=== PATIENT | male | born 1970 | race Caucasian/White ===

== ENCOUNTER → 2016-07-02 | Outpatient (REF) | payer OTHER ==
[~2016-07-02] MED LIST: ALIVTAB PO; BUPR300T34 PO; CARV6.25 PO; CHLO125TA PO; IBUP200C PO; LISI-538 PO
[2016-07-02 14:04] LABS: ALBUMIN 3.7 GM/DL (3.2-5.2); ALBUMIN/GLOBULIN RATIO 1.09 (1.00-1.93); ALKALINE PHOSPHATASE 74 U/L (45-117); ALT/SGPT 103 U/L (12-78); ANION GAP 10 MEQ/L (8-16); AST/SGOT 92 U/L (15-37); BILIRUBIN,TOTAL 0.8 MG/DL (0.2-1.0); BLOOD UREA NITROGEN 21 MG/DL (7-18); CALCIUM LEVEL 8.9 MG/DL (8.5-10.1); CARBON DIOXIDE LEVEL 28 MEQ/L (21-32); CHLORIDE LEVEL 101 MEQ/L (98-107); CHOLESTEROL LEVEL 198 MG/DL (<200); GLOMERULAR FILTRATION RATE 57.8 (>60); GLUCOSE, FASTING 111 MG/DL (70-105); POTASSIUM SERUM 3.9 MEQ/L (3.5-5.1); SODIUM LEVEL 139 MEQ/L (136-145); TOTAL PROTEIN 7.1 GM/DL (6.4-8.2); TRIGLYCERIDES LEVEL 846 MG/DL (<150)
[2016-07-02 14:19] LABS: BASO % 0.7 % (0.0-1.0); EOS # 0.1 K/mm3 (0.0-0.50); EOS % 2.2 % (0.0-3.0); LARGE UNSTAINED CELL # 0.1 K/mm3 (0.0-0.4); LARGE UNSTAINED CELL % 2.1 % (0.0-4.0); LYMPH # 1.3 K/mm3 (1.5-4.5); LYMPH % 26.8 % (24.0-44.0); MEAN CORPUSCULAR HEMOGLOBIN 33.4 pg (27.0-33.0); MEAN CORPUSCULAR HGB CONC 34.9 g/dl (32.0-36.5); MEAN CORPUSCULAR VOLUME 95.8 fl (80.0-96.0); MONO # 0.3 K/mm3 (0.0-0.8); MONO % 6.3 % (0.0-5.0); NEUTROPHILS # 2.7 K/mm3 (1.8-7.7); NEUTROPHILS % 61.9 % (36.0-66.0); PLATELET COUNT, AUTOMATED 215 k/mm3 (150-450); RED CELL DISTRIBUTION WIDTH 12.1 % (11.5-14.5); WHITE BLOOD COUNT 4.4 K/mm3 (4.0-10.0)
== END ==
LOC: M LABDRAW1 13:07
PROVIDERS: ATTEND Family Medicine
DX: I10 Essential (primary) hypertension (principal)

== ENCOUNTER 2016-07-25 07:39 | Inpatient (IN) | payer OTHER ==
[~2016-07-25] VITALS: Ht 188 cm; Wt 120.2 kg
[2016-07-25] MEDS ORDERED: MORPHINE 4 MG/ML 1ML SYRINGE IV ONE (08:30)
[2016-07-25] MEDS ORDERED: NS 1,000 ML IV ONE (08:30)
[2016-07-25] MEDS ORDERED: ONDANSETRON 4MG/2ML VIAL (J2405) IV ONE (08:30)
[2016-07-25 08:52] LABS: BASO % 0.4 % (0.0-1.0); EOS # 0.2 K/mm3 (0.0-0.50); EOS % 1.8 % (0.0-3.0); LARGE UNSTAINED CELL # 0.1 K/mm3 (0.0-0.4); LARGE UNSTAINED CELL % 0.9 % (0.0-4.0); LYMPH % 10.8 % (24.0-44.0); MEAN CORPUSCULAR HEMOGLOBIN 36.3 pg (27.0-33.0); MEAN CORPUSCULAR VOLUME 93.6 fl (80.0-96.0); MONO # 0.3 K/mm3 (0.0-0.8); MONO % 3.8 % (0.0-5.0); NEUTROPHILS # 7.2 K/mm3 (1.8-7.7); NEUTROPHILS % 82.2 % (36.0-66.0); PLATELET COUNT, AUTOMATED 224 k/mm3 (150-450); RED CELL DISTRIBUTION WIDTH 12.3 % (11.5-14.5); WHITE BLOOD COUNT 8.8 K/mm3 (4.0-10.0)
[2016-07-25 08:54] LABS: MEAN CORPUSCULAR HGB CONC 38.7 g/dl (32.0-36.5)
[2016-07-25 09:19] LABS: ALBUMIN 3.4 GM/DL (3.2-5.2); ALKALINE PHOSPHATASE 85 U/L (45-117); AMYLASE 116 U/L (25-115); ANION GAP 10 MEQ/L (8-16); BILIRUBIN,DIRECT < 0.1 MG/DL (0.0-0.2); BILIRUBIN,TOTAL 0.5 MG/DL (0.2-1.0); BLOOD UREA NITROGEN 22 MG/DL (7-18); CALCIUM LEVEL 7.6 MG/DL (8.5-10.1); CARBON DIOXIDE LEVEL 25 MEQ/L (21-32); CHLORIDE LEVEL 105 MEQ/L (98-107); CREATININE FOR GFR 1.49 MG/DL (0.70-1.30); GLOMERULAR FILTRATION RATE 53.8 (>60); GLUCOSE, FASTING 125 MG/DL (70-105); POTASSIUM SERUM 4.3 MEQ/L (3.5-5.1); SODIUM LEVEL 140 MEQ/L (136-145); TOTAL PROTEIN 6.5 GM/DL (6.4-8.2)
[2016-07-25 09:20] LABS: ALT/SGPT 143 U/L (12-78); AST/SGOT 125 U/L (15-37)
[2016-07-25] MEDS ORDERED: ISOVUE-370 76% 100ML VIAL (Q9967) As Ordered ONE (09:29)
[2016-07-25] MEDS ORDERED: NS 1,000 ML IV SCH (09:45)
--- NOTE | 2016-07-25 10:07 | REP ---
CT abdomen pelvis with IV contrast, without bowel contrast: There are no comparisons. The visualized lung kessler are unremarkable. No pleural effusions. The hepatic parenchyma is diffusely less dense than the spleen compatible with hepato steatosis. There are no focal hepatic masses. There is no biliary duct dilatation. There is peripancreatic inflammation adjacent to the tail of the pancreas and extending along Gerota's fascia on the left, compatible with pancreatitis. There is no pancreatic pseudocyst. Enhanced of the pancreatic parenchyma is normal. The spleen is normal size and homogeneous. The adrenals, kidneys and abdominal aorta are unremarkable. There is no bowel distension. Mesentery is unremarkable. Pelvis: The bladder is unremarkable. There is no adenopathy or ascites. The pelvic bowel loops are unremarkable. The appendix is unremarkable. Impression: Pancreatitis involving predominately the pancreatic tail extending to Gerota's fascia on the left. There is normal pancreatic enhancement. There is no pancreatic pseudocyst. Hepato steatosis. Signed by Sinan Keenan MD 07/25/2016 09:58 A
[2016-07-25] MEDS ORDERED: LORazepam 2 MG/ML VIAL (J2060) IV PRN (10:30)
[2016-07-25] MEDS ORDERED: ONDANSETRON 4MG/2ML VIAL (J2405) IV PRN (10:30)
[2016-07-25] MEDS ORDERED: HYDROmorphone 2 MG TAB PO ONE (10:30)
[2016-07-25] MEDS ORDERED: MORPHINE 2 MG/ML 1ML SYRINGE IV PRN (10:30)
[2016-07-25] MEDS ORDERED: HYDROmorphone HCL 1 MG/ML SYRINGE (J1170) IV ONE (10:45)
[2016-07-25] MEDS ORDERED: LISI-538 PO (10:46)
[2016-07-25] MEDS ORDERED: TYLE325T5 PO (10:46)
[2016-07-25] MEDS ORDERED: CHLO25TA PO (10:46)
[2016-07-25] MEDS ORDERED: OMEP40CA2 PO (10:46)
[2016-07-25] MEDS ORDERED: VITMTA PO (10:46)
[2016-07-25] MEDS ORDERED: CARV6.25 PO (10:46)
[2016-07-25 12:30] VITALS: BP 135/90
[2016-07-25 14:00] VITALS: BP 136/95
[2016-07-25] MEDS: ENOXAPARIN 40 MG/0.4 ML SYRINGE (J1650) SC SCH (14:41)
[2016-07-25] MEDS: NS 1,000 ML IV SCH ×2 (14:42→21:21)
[2016-07-25] MEDS: MORPHINE 2 MG/ML 1ML SYRINGE IV PRN ×2 (14:42→21:15)
[2016-07-25] MEDS ORDERED: hydrALAZINE INJ 20 MG/ML VIAL IV PRN (16:00)
--- NOTE | 2016-07-25 16:07 | HPEPDOC ---
Medical History and Physical Date of Admission Jul 25, 2016 at 10:22 History and Physical HISTORY AND PHYSICAL Date of admission: 07/25/2016 PCP: Dr. Yonatan Almodovar Chief complaint: abdominal pain HPI: 46-year-old male with hypertension, IBS, anxiety, chronic kidney disease stage 2- 3 who presented with abdominal pain. He states that last night when he went to bed, his abdomen was a little bit uncomfortable. However, at approximately 11 PM, the discomfort started to wake him up and it seems to keep him up most of the night. He states that he had one episode of emesis, but it was mostly mucus. He describes the pain as a constant cramping with intermittent shooting jabs, and it encompasses pretty much his entire abdomen. He currently rates it at a 5 out of 10, he says the only thing that seems to make it any better is trying to lay still. He denies ever having experienced an episode like this before. When asked if anything was different about last night and if he had drank more than usual, he said that no, it was been pretty much a normal night. Past medical history: Hypertension, IBS, anxiety, chronic kidney disease stage 2 - 3 Past surgical history: Repair of a broken jaw Family history: Diabetes and hypertension Social history: The patient is retired from the [employer]. He currently works as a design project manager. He quit smoking in 2005 and he denies any drug use. He does report drinking every day, approximately 3 drinks per day. According to his , she feels that he drinks pretty heavily. Allergies: No known drug allergies Review of systems: General: Negative for fever and chills Eyes: Negative for vision changes and ocular discharge ENT: Positive for hoarseness but negative for sore throat. Positive for a mild nosebleed several days ago, which he states is a common occurrence when his nose gets dry. Cardiovascular: Positive for palpitations several days ago when he was particularly anxious about his situation. Also positive for chest wall pain in his lower left chest that radiates up from the pain that encompasses the stomach Respiratory: Positive for chronic cough. Negative for shortness of breath. GI: Positive for abdominal pain and vomiting. The patient denies any bowel movement within the last 24 hours, but states that prior to that he was having diarrhea, which is a chronic issue for him. Musculoskeletal: Negative for neck and back pain Skin: Negative For rash Neuro: Positive for headache and dizziness with standing. Negative for numbness and tingling Psych: Positive for depression but negative for suicidal ideation Endocrine: Negative for polyuria : Negative for dysuria Heme: Negative for bruising and bleeding Home meds: See below Physical exam: Vital signs: Vital Signs Date Time Temp Pulse Resp B/P Pulse Ox O2 Delivery O2 Flow Rate FiO2 07/25/16 14:52 18 07/25/16 12:12 99.8 83 138/ 96 Room Air Gen.: awake, alert, no acute distress Eyes: Extraocular movements intact, normal sclera ENT: Moist mucous membranes Cardiovascular: RRR, no murmurs rubs or gallops Lungs: clear to auscultation bilaterally, no rales, rhonchi, or wheeze Abdomen: Soft, decreased bowel sounds, diffuse tenderness to palpation in all quadrants but worse in the epigastrium and the right upper quadrant Musculoskeletal: normal range of motion Extremities: No peripheral edema Neuro: alert and oriented 3, normal speech, no focal deficits Psych: Normal mood with congruent affect Labs and radiology: See below Creatinine 1.49 Lipase greater than 5000 and AST 125, ALT 143 CT of the abdomen and pelvis shows pancreatitis of the tail of the pancreas but no pseudocyst; it also shows hepatic or steatosis Assessment and plan: 46-year-old male with hypertension, IBS, anxiety, 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 1. Acute alcoholic pancreatitis: The patient will be kept nothing by mouth with high rate IV fluids and IV pain control. The CT of his abdomen and pelvis seems to show a straightforward and uncomplicated pancreatitis. 2. Transaminitis: The patient's AST and ALT are elevated, but upon review of the EMR, this appears to be a chronic issue. Although they are slightly more elevated than on prior admissions, I largely suspect that this is all secondary to his daily alcohol consumption which has led to hepatic steatosis. We will continue to monitor. 3. Chronic kidney disease stage 2 to 3: Patient's baseline creatinine appears to be around 1.3-1.4. Upon admission, his creatinine is 1.49. We will continue to monitor as we hydrate him. 4. Hypertension: We will hold the patient's home beta dianelys, chlorthalidone, and LISA inhibitor as he is currently nothing by mouth. His blood pressure is currently controlled. If his blood pressure were to be elevated, we would consider using as needed IV medication. 5. IBS: Patient reports that he often has issues with diarrhea, and up until a couple days ago he was experiencing diarrhea. We will check a GI panel if he doesn't fact have any more episodes of diarrhea. 6. Daily alcohol consumption: I suspect that this is the underlying cause of his acute pancreatitis. Since the patient is nothing by mouth, we will start as needed Ativan for signs and symptoms of withdrawal. I had hoped to have a discussion with the patient about alcohol cessation and potential community resources, however, his young daughter was in the room with him when I interviewed him. I will defer this discussion until tomorrow, when his children are not with him. We will also give him a daily banana bag, which will include MVI, folate, and thiamine. DVT prophylaxis: Lovenox Dispo: admit as an inpatient to the service of Dr. Reed CODE STATUS: Full code Vital Signs Vital Signs Date Time Temp Pulse Resp B/P Pulse Ox O2 Delivery O2 Flow Rate FiO2 07/25/16 14:52 18 07/25/16 12:12 99.8 83 138/ 96 Room Air Laboratory Data Labs 24H Laboratory Tests 2 07/25/16 08:32: White Blood Count 8.8, Red Blood Count 3.71L, Hemoglobin 13.5L, Hematocrit 34.8L , Mean Corpuscular Volume 93.6, Mean Corpuscular Hemoglobin 36.3H, Mean Corpuscular Hemoglobin Concent 38.7H, Red Cell Distribution Width 12.3, Platelet Count 224, Neutrophils (%) (Auto) 82.2H, Lymphocytes (%) (Auto) 10.8L, Monocytes (%) (Auto) 3.8, Eosinophils (%) (Auto) 1.8, Basophils (%) (Auto) 0.4, Neutrophils # (Auto) 7.2, Lymphocytes # (Auto) 1.0L, Monocytes # (Auto) 0.3, Eosinophils # (Auto) 0.2, Basophils # (Auto) 0.0, Large Unclassified Cells # 0.1 , Large Unclassified Cells % 0.9 07/25/16 08:33: Aspartate Amino Transf (AST/SGOT) 125H, Alanine Aminotransferase (ALT/SGPT) 143H , Alkaline Phosphatase 85, Total Bilirubin 0.5, Direct Bilirubin < 0.1, Albumin 3.4, Albumin/Globulin Ratio 1.10, Amylase Level 116H, Anion Gap 10, Calcium Level 7.6L, Glomerular Filtration Rate 53.8L, Lipase 5707H, Total Protein 6.5 07/25/16 09:53: Urine Amorphous Sediment , Urine Appearance CLEAR, Urine Color YELLOW, Urine pH 5.0, Urine Specific [place] 1.027, Urine Protein NEGATIVE, Urine Glucose (UA) NEGATIVE, Urine Ketones NEGATIVE, Urine Urobilinogen 0.2, Urine Bilirubin NEGATIVE, Urine Leukocyte Esterase NEGATIVE, Urine Bacteria (Auto) NEGATIVE, Urine Blood NEGATIVE, Urine Calcium Carbonate Cryst(Auto) , Urine Calcium Oxalate Cryst (Auto) , Urine Calcium Phosphate Karen (Auto) , Urine Cellular Casts , Urine Cystine Crystals , Urine Granular Casts (Auto) , Urine Hyaline Casts (Auto) 0, Urine Leucine Crystals , Urine Mucus (Auto) , Urine Nitrite NEGATIVE, Urine Oval Fat Bodies (Auto) , Urine RBC (Auto) 1, Urine Renal Epithelial Cells , Urine Sperm (Auto) , Urine Squamous Epithelial Cells 0, Urine Transitional Epithelial Cells , Urine Trichomonas (Auto) , Urine Triple Phosphate Cryst (Auto) , Urine Tyrosine Crystals , Urine Uric Acid Crystals ( Auto) , Urine WBC (Auto) 0, Urine Waxy Casts (Auto) , Urine Yeast-Like Cells ( Auto) CBC/BMP Laboratory Tests 07/25/16 08:32 Red Blood Count 3.71 L, Mean Corpuscular Volume 93.6, Mean Corpuscular Hemoglobin 36.3 H, Mean Corpuscular Hemoglobin Concent 38.7 H, Red Cell Distribution Width 12.3, Neutrophils (%) (Auto) 82.2 H, Lymphocytes (%) (Auto) 10.8 L, Monocytes (%) (Auto) 3.8, Eosinophils (%) (Auto) 1.8, Basophils (%) ( Auto) 0.4, Neutrophils # (Auto) 7.2, Lymphocytes # (Auto) 1.0 L, Monocytes # ( Auto) 0.3, Eosinophils # (Auto) 0.2, Basophils # (Auto) 0.0 07/25/16 08:33 Home Medications Scheduled Carvedilol (Carvedilol) 6.25 Mg Tab 6.25 MG PO BID Chlorthalidone (Chlorthalidone) 25 Mg Tab 25 MG PO DAILY Lisinopril (Lisinopril) 20 Mg Tab 20 MG PO DAILY Multivitamins *[facility]* (Thera M Plus *[facility]*) 1 Tab Tab 1 TAB PO DAILY Omeprazole (Omeprazole) 40 Mg Cap 40 MG PO DAILY Scheduled PRN Acetaminophen (Tylenol) 325 Mg Tab 650 MG PO Q4H PRN PRN PAIN Allergies Coded Allergies: No Known Allergies (Unverified , 03/11/16) EMEKA REED Jul 25, 2016 16:07
[2016-07-25] MEDS: MULTIVITAMIN -ADULT INJECTION 10 ML, THIAMINE INJection 100 MG, FOLIC ACID 1 MG in NS 1... IV SCH (18:12)
[2016-07-25 22:00] VITALS: BP 145/92
[2016-07-26] MEDS: MORPHINE 2 MG/ML 1ML SYRINGE IV PRN ×7 (00:24→21:45)
[2016-07-26] MEDS: NS 1,000 ML IV SCH ×4 (02:29→22:20)
[2016-07-26 06:00] VITALS: BP 145/95
[2016-07-26 07:11] LABS: BASO % 0.2 % (0.0-1.0); EOS % 0.6 % (0.0-3.0); LARGE UNSTAINED CELL # 0.1 K/mm3 (0.0-0.4); LARGE UNSTAINED CELL % 1.4 % (0.0-4.0); LYMPH # 0.9 K/mm3 (1.5-4.5); MEAN CORPUSCULAR HEMOGLOBIN 35.1 pg (27.0-33.0); MEAN CORPUSCULAR HGB CONC 36.2 g/dl (32.0-36.5); MONO # 0.3 K/mm3 (0.0-0.8); MONO % 3.2 % (0.0-5.0); NEUTROPHILS # 7.4 K/mm3 (1.8-7.7); NEUTROPHILS % 84.7 % (36.0-66.0); PLATELET COUNT, AUTOMATED 154 k/mm3 (150-450); RED CELL DISTRIBUTION WIDTH 12.3 % (11.5-14.5); WHITE BLOOD COUNT 8.7 K/mm3 (4.0-10.0)
[2016-07-26 07:36] LABS: ALBUMIN 2.6 GM/DL (3.2-5.2); ALBUMIN/GLOBULIN RATIO 0.76 (1.00-1.93); BILIRUBIN,TOTAL 1.3 MG/DL (0.2-1.0); CALCIUM LEVEL 7.1 MG/DL (8.5-10.1); CREATININE FOR GFR 1.45 MG/DL (0.70-1.30); GLOMERULAR FILTRATION RATE 55.5 (>60); MAGNESIUM LEVEL 1.5 MG/DL (1.8-2.4); POTASSIUM SERUM 3.7 MEQ/L (3.5-5.1)
[2016-07-26] MEDS: MAG SULF 1GM/100ML (MAG RUN) 1 GM in APPROPRIATE DILUENT 1 EA IV SCH ×2 (08:44→11:52)
[2016-07-26] MEDS: ENOXAPARIN 40 MG/0.4 ML SYRINGE (J1650) SC SCH (08:45)
[2016-07-26 16:50] VITALS: BP 167/99
--- NOTE | 2016-07-26 17:52 | IPNPDOC ---
Date Seen The patient was seen on 07/26/16. Progress Note Hospitalist Progress Note Subjective: Patient denies any vomiting. He reports that his pain is slightly improved from yesterday. Objective: Physical Exam: Vitals: Vital Sign - Last 24 Hours 07/25/16 07/25/16 07/25/16 07/25/16 18:30 21:00 21:15 22:00 Temp 99.6 101.0 Pulse 91 Resp 20 16 B/P 145/92 Pulse Ox 92 O2 Delivery Room Air Room Air 07/25/16 07/26/16 07/26/16 07/26/16 22:36 00:24 04:20 06:00 Temp 99.1 100.9 Pulse 91 Resp 19 19 18 B/P 145/95 Pulse Ox 92 O2 Delivery Room Air 07/26/16 07/26/16 07/26/16 07/26/16 08:44 09:15 11:52 15:02 Resp 20 0 20 O2 Delivery Room Air 07/26/16 07/26/16 15:12 16:50 Temp 100.1 Pulse 98 Resp 18 18 B/P 167/99 Pulse Ox 91 O2 Delivery Room Air Gen.: awake, alert, no acute distress Eyes: Extraocular movements intact, normal sclera ENT: Moist mucous membranes Cardiovascular: RRR, no murmurs rubs or gallops Lungs: clear to auscultation bilaterally, no rales, rhonchi, or wheeze Abdomen: Soft, decreased bowel sounds, diffuse tenderness to palpation in all quadrants but worse in the epigastrium and the right upper quadrant Musculoskeletal: normal range of motion Extremities: No peripheral edema Neuro: alert and oriented 3, normal speech, no focal deficits Psych: Normal mood with congruent affect Labs and Imaging: Laboratory Tests 07/26/16 06:31 Calcium Level 7.1 L, Aspartate Amino Transf (AST/SGOT) 66 H, Alanine Aminotransferase (ALT/SGPT) 79 H, Alkaline Phosphatase 66, Total Bilirubin 1.3 # H, Total Protein 6.0 L, Albumin 2.6 #L, Red Blood Count 3.52 L, Mean Corpuscular Volume 97.0 H, Mean Corpuscular Hemoglobin 35.1 H, Mean Corpuscular Hemoglobin Concent 36.2, Red Cell Distribution Width 12.3, Neutrophils (%) (Auto ) 84.7 H, Lymphocytes (%) (Auto) 10.0 L, Monocytes (%) (Auto) 3.2, Eosinophils ( %) (Auto) 0.6, Basophils (%) (Auto) 0.2, Neutrophils # (Auto) 7.4, Lymphocytes # (Auto) 0.9 L, Monocytes # (Auto) 0.3, Eosinophils # (Auto) 0.0, Basophils # ( Auto) 0.0 Assessment and Plan: 46-year-old male with hypertension, IBS, anxiety, 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 1. Acute alcoholic pancreatitis: The patient will be kept nothing by mouth with high rate IV fluids and IV pain control. The CT of his abdomen and pelvis seems to show a straightforward and uncomplicated pancreatitis. WBC has been WNL. However, he has now spiked several fevers, so will start imipenem while blood cultures are pending. 2. Transaminitis: The patient's AST and ALT are elevated on admission but they have now improved to their baseline. Upon review of the EMR, this appears to be a chronic issue. I largely suspect that this is all secondary to his daily alcohol consumption which has led to hepatic steatosis. We will continue to monitor. 3. Chronic kidney disease stage 2 to 3: Patient's baseline creatinine appears to be around 1.3-1.4. Upon admission, his creatinine is 1.49. We will continue to monitor as we hydrate him. 4. Hypertension: We will hold the patient's home beta dianelys, chlorthalidone, and LISA inhibitor as he is currently nothing by mouth. His blood pressure is currently controlled. If his blood pressure were to be elevated, we would consider using as needed IV medication. 5. IBS: Patient reports that he often has issues with diarrhea, and up until a couple days ago he was experiencing diarrhea. We will check a GI panel if he doesn't fact have any more episodes of diarrhea. 6. Daily alcohol consumption: I suspect that this is the underlying cause of his acute pancreatitis. Since the patient is nothing by mouth, we will start as needed Ativan for signs and symptoms of withdrawal. I discussed the need for cessation with him today, and while he admits that he is probably neds to quit, he does not quit seem ready to and is not completely convinced of AA. We will also give him a daily banana bag, which will include MVI, folate, and thiamine. DVT prophylaxis: Lovenox Dispo: pending improvment in fevers and abd pain VS, I&O, 24H, Fishbone Vital Signs/I&O Vital Signs Date Time Temp Pulse Resp B/P Pulse Ox O2 Delivery O2 Flow Rate FiO2 07/26/16 16:50 100.1 98 18 167/99 91 Room Air I&O- Last 24 Hours up to 6 AM 07/26/16 06:00 Intake Total 1000 ml Output Total 1600 ml Balance -600 ml Laboratory Data 24H LABS Laboratory Tests 2 07/26/16 06:31: Blood Urea Nitrogen 17, Creatinine 1.45H, Sodium Level 141, Potassium Level 3.7 , Chloride Level 105, Carbon Dioxide Level 28, Calcium Level 7.1L, Aspartate Amino Transf (AST/SGOT) 66H, Alanine Aminotransferase (ALT/SGPT) 79H, Alkaline Phosphatase 66, Total Bilirubin 1.3#H, Total Protein 6.0L, Albumin 2.6#L, Albumin/Globulin Ratio 0.76L, Anion Gap 8, White Blood Count 8.7, Red Blood Count 3.52L, Hemoglobin 12.4L, Hematocrit 34.1L, Mean Corpuscular Volume 97.0H, Mean Corpuscular Hemoglobin 35.1H, Mean Corpuscular Hemoglobin Concent 36.2, Red Cell Distribution Width 12.3, Platelet Count 154, Neutrophils (%) (Auto) 84.7H, Lymphocytes (%) (Auto) 10.0L, Monocytes (%) (Auto) 3.2, Eosinophils (%) ( Auto) 0.6, Basophils (%) (Auto) 0.2, Neutrophils # (Auto) 7.4, Lymphocytes # ( Auto) 0.9L, Monocytes # (Auto) 0.3, Eosinophils # (Auto) 0.0, Basophils # (Auto ) 0.0, Estimated Mean Plasma Glucose 114H, Glomerular Filtration Rate 55.5L, Hemoglobin A1c 5.6, Large Unclassified Cells # 0.1, Large Unclassified Cells % 1.4, Lipase 1334H, Magnesium Level 1.5L CBC/BMP Laboratory Tests 07/26/16 06:31 Calcium Level 7.1 L, Aspartate Amino Transf (AST/SGOT) 66 H, Alanine Aminotransferase (ALT/SGPT) 79 H, Alkaline Phosphatase 66, Total Bilirubin 1.3 # H, Total Protein 6.0 L, Albumin 2.6 #L, Red Blood Count 3.52 L, Mean Corpuscular Volume 97.0 H, Mean Corpuscular Hemoglobin 35.1 H, Mean Corpuscular Hemoglobin Concent 36.2, Red Cell Distribution Width 12.3, Neutrophils (%) (Auto ) 84.7 H, Lymphocytes (%) (Auto) 10.0 L, Monocytes (%) (Auto) 3.2, Eosinophils ( %) (Auto) 0.6, Basophils (%) (Auto) 0.2, Neutrophils # (Auto) 7.4, Lymphocytes # (Auto) 0.9 L, Monocytes # (Auto) 0.3, Eosinophils # (Auto) 0.0, Basophils # ( Auto) 0.0 Microbiology Microbiology 07/26/16 Blood Culture, Received Pending 07/26/16 Blood Culture, Received Pending EMEKA BOWIE Jul 26, 2016 17:52
[2016-07-26] MEDS: ACETAMINOPHEN 650 MG SUPP PR PRN (18:50)
[2016-07-26] MEDS: MULTIVITAMIN -ADULT INJECTION 10 ML, THIAMINE INJection 100 MG, FOLIC ACID 1 MG in NS 1... IV SCH (20:00)
[2016-07-26] MEDS: IMIPENEM/CILASTATIN 500 MG in D5W MINI-BAG PLUS 100 ML IV SCH (20:00)
[2016-07-26 22:00] VITALS: BP 151/97
[2016-07-27] MEDS: IMIPENEM/CILASTATIN 500 MG in D5W MINI-BAG PLUS 100 ML IV SCH ×3 (00:36→12:51)
[2016-07-27] MEDS: MORPHINE 2 MG/ML 1ML SYRINGE IV PRN (00:45)
[2016-07-27] MEDS: NS 1,000 ML IV SCH (05:37)
[2016-07-27] MEDS: ACETAMINOPHEN 650 MG SUPP PR PRN (05:38)
[2016-07-27 06:00] VITALS: BP 128/80
[2016-07-27 07:04] LABS: BASO % 0.1 % (0.0-1.0); EOS # 0.1 K/mm3 (0.0-0.50); EOS % 1.4 % (0.0-3.0); LARGE UNSTAINED CELL # 0.1 K/mm3 (0.0-0.4); LARGE UNSTAINED CELL % 1.5 % (0.0-4.0); LYMPH # 0.8 K/mm3 (1.5-4.5); LYMPH % 8.2 % (24.0-44.0); MEAN CORPUSCULAR HEMOGLOBIN 33.2 pg (27.0-33.0); MEAN CORPUSCULAR HGB CONC 34.6 g/dl (32.0-36.5); MEAN CORPUSCULAR VOLUME 95.9 fl (80.0-96.0); MONO # 0.5 K/mm3 (0.0-0.8); MONO % 6.5 % (0.0-5.0); NEUTROPHILS # 6.6 K/mm3 (1.8-7.7); NEUTROPHILS % 82.2 % (36.0-66.0); PLATELET COUNT, AUTOMATED 132 k/mm3 (150-450); RED CELL DISTRIBUTION WIDTH 12.6 % (11.5-14.5)
[2016-07-27 07:20] LABS: ALBUMIN 2.3 GM/DL (3.2-5.2); ALBUMIN/GLOBULIN RATIO 0.64 (1.00-1.93); ALKALINE PHOSPHATASE 62 U/L (45-117); ALT/SGPT 50 U/L (12-78); ANION GAP 11 MEQ/L (8-16); AST/SGOT 37 U/L (15-37); BILIRUBIN,TOTAL 1.4 MG/DL (0.2-1.0); BLOOD UREA NITROGEN 14 MG/DL (7-18); CALCIUM LEVEL 7.5 MG/DL (8.5-10.1); CARBON DIOXIDE LEVEL 24 MEQ/L (21-32); CHLORIDE LEVEL 103 MEQ/L (98-107); CREATININE FOR GFR 1.21 MG/DL (0.70-1.30); GLOMERULAR FILTRATION RATE > 60.0 (>60); GLUCOSE, FASTING 126 MG/DL (70-105); MAGNESIUM LEVEL 1.9 MG/DL (1.8-2.4); POTASSIUM SERUM 3.3 MEQ/L (3.5-5.1); SODIUM LEVEL 138 MEQ/L (136-145); TOTAL PROTEIN 5.9 GM/DL (6.4-8.2)
[2016-07-27] MEDS ORDERED: CARVedilol 6.25 MG TAB PO SCH (09:00)
[2016-07-27] MEDS ORDERED: POTASSIUM CHLORIDE 10 MEQ SR TABLET PO ONE (09:45)
[2016-07-27] MEDS ORDERED: OXAZEPAM 10 MG CAP PO PRN (09:45)
[2016-07-27] MEDS: ENOXAPARIN 40 MG/0.4 ML SYRINGE (J1650) SC SCH (11:10)
[2016-07-27] MEDS: THIAMINE 100 MG TAB PO SCH (11:11)
[2016-07-27] MEDS: MULTIVITAMINS/MINERALS THERAP 1 TAB PO SCH (11:11)
[2016-07-27] MEDS: FOLIC ACID 1 MG TAB PO SCH (11:11)
[2016-07-27] MEDS: EXCEDRIN MIGRAINE TABLET PO PRN ×2 (11:17→18:34)
[2016-07-27 14:00] VITALS: BP 143/95
[2016-07-27] MEDS: MIRALAX *UNIT DOSE* 17GM PACKET PO SCH (14:38)
[2016-07-27] MEDS: DOCUSATE SODIUM 100 MG CAP PO SCH ×2 (14:38→20:05)
[2016-07-27] MEDS ORDERED: MOM 30ML SUSPENSION UDC PO PRN (14:45)
[2016-07-27] MEDS: PERCOCET 5MG/325MG TAB PO PRN ×2 (14:51→20:59)
--- NOTE | 2016-07-27 15:15 | IPN ---
DATE: 07/27/2016 A 46-year-old gentleman seen at bedside. No overnight issues reported. He has had some low-grade elevation of his temperature this morning. He has had a nonproductive cough. Denies any chest pain. He states that his belly pain has improved. He was able tolerate some of his salad at lunchtime today and we will see if we can continue to advance his diet as tolerated. OBJECTIVE: VITAL SIGNS: Temperature 99.1 with maximum temperature (T-max) of 100.8 this morning. Pulse is 94 and regular, respiratory rate 18 and nonlabored, blood pressure 128/80, SPO2 is 98% on room air. GENERAL: The patient appears to be in no acute distress. He is alert and pleasant. HEENT: Unremarkable. No photophobia. Throat is clear. Neck is supple. He does complain of a mild headache that he took some Excedrin for this morning. ABDOMEN: He did have some vague epigastric tenderness. Positive bowel sounds. No masses. No rebound. EXTREMITIES: No edema. No calf tenderness. LABORATORY DATA: White count is 8.0, hemoglobin 11.5, platelets are 132,000. Sodium is 138, potassium 3.3, chloride 103, bicarbonate 24, anion gap 11, BUN is 14, creatinine 1.21, glucose 126, magnesium 1.9, total bilirubin 1.4, AST is 37, ALT 50, alkaline phosphatase 62, albumin is 2.3, lipase 494. Urinalysis is negative. ASSESSMENT AND PLAN: 1. Acute alcoholic pancreatitis, improved. IV fluids have been discontinued. White count is normalized. CT of the abdomen and pelvis did demonstrate uncomplicated pancreatitis. No pseudocyst. We will try to advance his diet as tolerated and Percocet as needed. 2. Transaminitis, resolved. 3. Mild elevation in temperature with normal white count. He has had a cough. This likely is atelectasis. We will go ahead and check a chest x-ray. 4. Chronic kidney disease (CKD), stage II baseline. He does appear to be moving towards his baseline. We will continue to encourage oral intake. 5. Hypertension, stable. 6. Irritable bowel syndrome. No issues with diarrhea. He actually had some constipation this morning and bowel regimen was put in place. 7. Daily alcohol consumption, which we did encourage cessation. He does not demonstrate any withdrawal symptoms. Serax and IV Ativan are in place for as-needed use for withdrawal symptoms and agitation, which he has not used any at this point. His banana bag has been switched to oral multivitamin, folate, and thiamine. 8. Deep vein thrombosis (DVT) prophylaxis with Lovenox. DISPOSITION: Depending on how he is doing over the next 24 hours, we will see about progressing his diet and see if we get him home.
[2016-07-27] MEDS ORDERED: CARVedilol 6.25 MG TAB As Ordered ONE (16:27)
[2016-07-27] MEDS: CHLORTHALIDONE 25 MG TAB PO SCH (16:30)
[2016-07-27] MEDS: LISINOPRIL 20 MG TAB PO SCH (16:30)
[2016-07-27] MEDS ORDERED: CARVedilol 6.25 MG TAB PO ONE (16:30)
[2016-07-27 22:00] VITALS: BP 137/92
--- NOTE | 2016-07-28 03:37 | REP ---
Clinical: Chest pain and fever. Technique: PA and lateral. Comparison: 09/29/2013. Findings: Moderate left pleural effusion and associated atelectasis/infiltrate noted. Remainder of lung kessler are clear. Mediastinum and cardiac silhouette normal. No pneumothorax. Skeletal structures intact. Impression: Moderate left pleural effusion and left lower lobe consolidation/atelectasis. Signed by Ricky Ko MD 07/28/2016 02:33 A
[2016-07-28] MEDS: PERCOCET 5MG/325MG TAB PO PRN (04:23)
[2016-07-28 06:00] VITALS: BP 155/95
[2016-07-28 07:00] LABS: BASO % 0.2 % (0.0-1.0); EOS # 0.3 K/mm3 (0.0-0.50); EOS % 4.1 % (0.0-3.0); LARGE UNSTAINED CELL # 0.1 K/mm3 (0.0-0.4); LARGE UNSTAINED CELL % 1.8 % (0.0-4.0); LYMPH % 12.3 % (24.0-44.0); MEAN CORPUSCULAR HEMOGLOBIN 33.5 pg (27.0-33.0); MEAN CORPUSCULAR HGB CONC 34.3 g/dl (32.0-36.5); MEAN CORPUSCULAR VOLUME 97.7 fl (80.0-96.0); MONO # 0.4 K/mm3 (0.0-0.8); MONO % 5.7 % (0.0-5.0); NEUTROPHILS # 5.5 K/mm3 (1.8-7.7); PLATELET COUNT, AUTOMATED 146 k/mm3 (150-450); RED CELL DISTRIBUTION WIDTH 12.3 % (11.5-14.5); WHITE BLOOD COUNT 7.3 K/mm3 (4.0-10.0)
[2016-07-28 07:17] LABS: ALBUMIN 2.2 GM/DL (3.2-5.2); ALBUMIN/GLOBULIN RATIO 0.56 (1.00-1.93); ALKALINE PHOSPHATASE 85 U/L (45-117); ALT/SGPT 53 U/L (12-78); ANION GAP 8 MEQ/L (8-16); AST/SGOT 62 U/L (15-37); BLOOD UREA NITROGEN 15 MG/DL (7-18); CARBON DIOXIDE LEVEL 27 MEQ/L (21-32); CHLORIDE LEVEL 102 MEQ/L (98-107); CREATININE FOR GFR 1.15 MG/DL (0.70-1.30); GLOMERULAR FILTRATION RATE > 60.0 (>60); GLUCOSE, FASTING 102 MG/DL (70-105); MAGNESIUM LEVEL 2.2 MG/DL (1.8-2.4); POTASSIUM SERUM 3.6 MEQ/L (3.5-5.1); SODIUM LEVEL 137 MEQ/L (136-145); TOTAL PROTEIN 6.1 GM/DL (6.4-8.2)
[2016-07-28 08:52] VITALS: BP 146/103
[2016-07-28] MEDS: FOLIC ACID 1 MG TAB PO SCH (08:52)
[2016-07-28] MEDS: MULTIVITAMINS/MINERALS THERAP 1 TAB PO SCH (08:52)
[2016-07-28] MEDS: LISINOPRIL 20 MG TAB PO SCH (08:52)
[2016-07-28] MEDS: DOCUSATE SODIUM 100 MG CAP PO SCH (08:53)
[2016-07-28] MEDS: CHLORTHALIDONE 25 MG TAB PO SCH (08:53)
[2016-07-28] MEDS: MIRALAX *UNIT DOSE* 17GM PACKET PO SCH (08:53)
[2016-07-28] MEDS: ENOXAPARIN 40 MG/0.4 ML SYRINGE (J1650) SC SCH (08:53)
[2016-07-28] MEDS: THIAMINE 100 MG TAB PO SCH (08:54)
[2016-07-28] MEDS ORDERED: CARVedilol 6.25 MG TAB PO SCH (09:00)
[2016-07-28] MEDS ORDERED: PERCOCET PO (11:00)
[2016-07-28] MEDS ORDERED: FOLI1TAB2 PO (11:00)
[2016-07-28] MEDS ORDERED: THIA100TA PO (11:00)
[2016-07-28] MEDS ORDERED: EXCEDTAB PO (11:00)
--- NOTE | 2016-07-28 17:37 | DSES ---
DATE OF ADMISSION: 07/25/2016 DATE OF DISCHARGE: 07/28/2016 PRIMARY CARE PROVIDER: Dr. Almodovar CONSULTATIONS: None. PROCEDURES: None. COMPLICATIONS: None. ADMISSION/DISCHARGE DIAGNOSES: 1. Acute alcoholic pancreatitis. 2. Transaminitis, resolved. 3. Mild elevated temperature, normal white count with small pleural effusion and atelectasis on chest x-ray, no acute infiltrate. 4. Chronic kidney disease (CKD), stage II, at baseline with his creatinine. 5. Hypertension, stable. 6. Irritable bowel syndrome. 7. Daily alcohol consumption, which we encouraged cessation. BRIEF HOSPITAL COURSE: Mr. Elise is a 46-year-old gentleman with known history of irritable bowel syndrome, chronic kidney disease (CKD) stage II to III and alcohol use/abuse who presented to the emergency department with abdominal pain on 07/25/2016. He had an episode of emesis which was mostly mucus and constant cramping intermittent shooting pains encompassing pretty much the entire abdomen but more located in the epigastric region. He rated his pain as a 5/10. No prior history of pancreatitis. No history of abdominal trauma or surgeries. Evaluation in the emergency department did demonstrate an elevated lipase of greater than 5000. His creatinine was 1.49, transaminases were elevated, AST 125, ALT 143, and CT of the abdomen and pelvis showed inflammation of the tail of the pancreas along with hepatic steatosis. He was nothing by mouth, given IV fluids and pain control. His symptomatology did improve over the next 24-48 hours. We were able to advance his diet. On the day of discharge, he was able to tolerate breakfast and lunchtime meal without any difficulty. He has had some minimal usage of some Percocet this morning as well. For further information regarding intake physical, laboratories and diagnostics, please refer to the history and physical. OBJECTIVE: Temperature is 97.4, pulse 80, respiratory rate is 18, blood pressure 155/95, SPO2 is 94% on room air. GENERAL: The patient appears to be in no acute distress. He is alert and oriented. HEENT: Unremarkable. LUNGS: Clear. HEART: Regular rate and rhythm. ABDOMEN: Soft. EXTREMITIES: No edema. No calf tenderness. LABORATORY DATA: White count 7.3, hemoglobin 10.6, platelets are 146,000. Sodium 137, potassium 3.6, chloride 102, bicarbonate 27, anion gap 8, BUN is 15, creatinine 1.15, glucose 102, total bilirubin 1.0, magnesium 2.2, AST 62, ALT 53, alkaline phosphatase 18, lipase is 585. Blood cultures negative. DISCHARGE CONDITION: Good. DISPOSITION: Discharge to home. DISCHARGE MEDICATIONS: - Percocet 5/325 one tablet every six hours as needed, #12 with no refills, maximum daily dose of four - folic acid 1 mg daily - thiamine 100 mg daily - Excedrin Migraine as needed for headache - carvedilol 6.25 mg twice a day - chlorthalidone 25 mg daily - lisinopril 20 mg daily - multivitamin one tablet daily - omeprazole 40 mg daily DISCHARGE INSTRUCTIONS: Discharge to home. Activity as tolerated. Regular diet. Avoid alcohol. Continue with folic acid, thiamine and multivitamin. Seek medical attention if symptoms should recur or worsen. He voices understanding. Discharge took 35 minutes.
== END 2016-07-28 12:39 | disposition home or self-care (01) | DRG 439 ==
LOC: M ED 08:28 → M ED INP 10:22 → M MS5PR 12:30 → M MSPAV 07-26 16:45
PROVIDERS: ADMIT Hospitalist; ATTEND Hospitalist
DX: K85.20 Alcohol induced acute pancreatitis without necrosis or infection (principal); J98.11 Atelectasis; K58.0 Irritable bowel syndrome with diarrhea; N18.2 Chronic kidney disease, stage 2 (mild); F10.20 Alcohol dependence, uncomplicated; K70.9 Alcoholic liver disease, unspecified; R74.0 Nonspecific elevation of levels of transaminase and lactic acid dehydrogenase [LDH]; I12.9 Hypertensive chronic kidney disease with stage 1 through stage 4 chronic kidney disease, or unspecified chronic kidney disease; F41.9 Anxiety disorder, unspecified; Z79.891 Long term (current) use of opiate analgesic; Z79.899 Other long term (current) drug therapy

== ENCOUNTER → 2016-10-30 | Outpatient (CLI) | payer OTHER ==
[~2016-10-30] MED LIST changes: +CHLO25TA PO; +EXCEDTAB PO; +FOLI1TAB4 PO; -IBUP200C PO; +IBUP200C10 PO; +OMEP40CA2 PO; +PERCOCET PO; +THIA100TA PO; +TYLE325T5 PO; +VITMTA PO
[2016-10-30 09:06] LABS: ALBUMIN 3.8 GM/DL (3.2-5.2); ALBUMIN/GLOBULIN RATIO 1.52 (1.00-1.93); ALKALINE PHOSPHATASE 48 U/L (45-117); ALT/SGPT 23 U/L (12-78); ANION GAP 8 MEQ/L (8-16); AST/SGOT 12 U/L (15-37); BILIRUBIN,TOTAL 0.5 MG/DL (0.2-1.0); BLOOD UREA NITROGEN 17 MG/DL (7-18); CALCIUM LEVEL 8.9 MG/DL (8.5-10.1); CARBON DIOXIDE LEVEL 28 MEQ/L (21-32); CHLORIDE LEVEL 106 MEQ/L (98-107); CHOLESTEROL LEVEL 145 MG/DL (<200); CREATININE FOR GFR 1.18 MG/DL (0.70-1.30); GLOMERULAR FILTRATION RATE > 60.0 (>60); GLUCOSE, FASTING 96 MG/DL (70-105); POTASSIUM SERUM 4.5 MEQ/L (3.5-5.1); SODIUM LEVEL 142 MEQ/L (136-145); TOTAL PROTEIN 6.3 GM/DL (6.4-8.2); TRIGLYCERIDES LEVEL 131 MG/DL (<150)
== END ==
LOC: M LAB 07:41
PROVIDERS: ATTEND Emergency Medicine
DX: I10 Essential (primary) hypertension (principal)

== ENCOUNTER → 2017-01-12 | Outpatient (REF) | payer OTHER ==
[2017-01-12 12:30] LABS: BASO % 0.8 % (0.0-1.0); EOS # 0.3 10^3/uL (0.0-0.50); EOS % 5.3 % (0.0-3.0); IMMATURE GRANULOCYTE % 0.2 % (0-0); LYMPH # 1.5 10^3/uL (1.5-4.5); LYMPH % 29.4 % (24.0-44.0); MEAN CORPUSCULAR HEMOGLOBIN 30.6 pg (27.0-33.0); MEAN CORPUSCULAR HGB CONC 33.7 g/dl (32.0-36.5); MEAN CORPUSCULAR VOLUME 90.9 fl (80.0-96.0); MONO # 0.4 10^3/uL (0.0-0.8); MONO % 7.3 % (0.0-5.0); NEUTROPHILS # 2.9 10^3/uL (1.8-7.7); PLATELET COUNT, AUTOMATED 214 10^3/uL (150-450); RED CELL DISTRIBUTION WIDTH 12.5 % (11.5-14.5); WHITE BLOOD COUNT 5.1 10^3/uL (4.0-10.0)
[2017-01-12 12:39] LABS: URIC ACID 5.9 MG/DL (3.5-7.2)
[2017-01-12 13:47] LABS: ERYTHROCYTE SEDIMENTATION RATE 3 mm/hr (0-15)
[2017-01-14 00:08] LABS: Lyme Disease IgG/IgM Antibodie <0.91 ISR (0.00-0.90); Lyme Disease IgM Ab Quantitati <0.80 index (0.00-0.79)
== END ==
LOC: M LABDRAW1 09:59
PROVIDERS: ATTEND Emergency Medicine
DX: M25.50 Pain in unspecified joint (principal); R19.7 Diarrhea, unspecified

== ENCOUNTER → 2018-02-07 | Outpatient (REF) | payer OTHER ==
[2018-02-07 14:53] LABS: ALBUMIN 3.9 GM/DL (3.2-5.2); ALBUMIN/GLOBULIN RATIO 1.26 (1.00-1.93); ALKALINE PHOSPHATASE 84 U/L (45-117); ALT/SGPT 43 U/L (12-78); ANION GAP 10 MEQ/L (8-16); AST/SGOT 45 U/L (7-37); BILIRUBIN,TOTAL 0.7 MG/DL (0.2-1.0); BLOOD UREA NITROGEN 15 MG/DL (7-18); CALCIUM LEVEL 8.8 MG/DL (8.5-10.1); CARBON DIOXIDE LEVEL 25 MEQ/L (21-32); CHLORIDE LEVEL 107 MEQ/L (98-107); CHOLESTEROL LEVEL 200 MG/DL (<200); CHOLESTEROL RISK RATIO 4.444 (<5); CREATININE FOR GFR 1.29 MG/DL (0.70-1.30); GLOMERULAR FILTRATION RATE > 60.0 (>60); GLUCOSE, FASTING 88 MG/DL (70-100); HDL CHOLESTEROL 45 MG/DL (>40); NON-HDL-C 155 MG/DL; POTASSIUM SERUM 4.1 MEQ/L (3.5-5.1); SODIUM LEVEL 142 MEQ/L (136-145); TRIGLYCERIDES LEVEL 678 MG/DL (<150)
[2018-02-07 15:43] LABS: ESTIMATED AVERAGE GLUCOSE 103 MG/DL (60-110); HEMOGLOBIN A1c 5.2 %
== END ==
LOC: M LABDRAW1 13:54
DX: R73.01 Impaired fasting glucose (principal)
CPT/HCPCS: 80053

== ENCOUNTER 2018-08-09 18:22 | Observation (INO) | payer OTHER ==
[~2018-08-09] VITALS: Ht 188 cm; Wt 125.0 kg
[~2018-08-09 18:22] MED LIST changes: +FOLI1TAB11 PO; -FOLI1TAB4 PO; -IBUP200C10 PO; +IBUP200C25 PO
[2018-08-09] MEDS ORDERED: NS 1,000 ML IV ONE (19:00)
[2018-08-09 19:27] LABS: ETHYL ALCOHOL (ETHANOL) 0.314 % (0.000-0.010)
[2018-08-09] MEDS ORDERED: SILVER NITRATE APPLICATOR As Ordered ONE (19:54)
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
--- NOTE | 2018-08-09 20:41 | ECGEPIP ---
Stationary ECG Study [facility] - ED Test Date: 2018-08-09 Pat Name: DINORAH CARVAJAL Department: Room: - Gender: M Real Estate Consultant: sb : 1970 Requested By: YASH Ngo Order Number: [id number] Reading MD: Loreta Camara Measurements Intervals [place] Rate: 120 P: 14 FL: 176 QRS: -43 QRSD: 97 T: 23 QT: 311 QTc: 441 Interpretive Statements SINUS TACHYCARDIA MARKED LEFT AXIS DEVIATION POSSIBLE ANTERIOR MYOCARDIAL INFARCTION, PROBABLY OLD INCREASED RARTE 09/29/13 Electronically Signed On 08-09-2018 20:40:53 EDT by Loreta Camara
[2018-08-09 20:48] LABS: BASO # 0.1 10^3/uL (0.0-0.2); EOS # 0.2 10^3/uL (0.0-0.50); EOS % 3.1 % (0.0-3.0); HEMATOCRIT 45.6 % (42.0-52.0); HEMOGLOBIN 15.7 g/dl (13.5-17.5); LYMPH # 2.8 10^3/uL (1.5-4.5); LYMPH % 39.4 % (24.0-44.0); MEAN CORPUSCULAR HEMOGLOBIN 34.9 pg (27.0-33.0); MEAN CORPUSCULAR HGB CONC 34.4 g/dl (32.0-36.5); MEAN CORPUSCULAR VOLUME 101.3 fl (80.0-96.0); MONO # 0.5 10^3/uL (0.0-0.8); MONO % 7.4 % (0.0-5.0); NEUTROPHILS # 3.5 10^3/uL (1.8-7.7); NEUTROPHILS % 48.5 % (36.0-66.0); PLATELET COUNT, AUTOMATED 239 10^3/uL (150-450); WHITE BLOOD COUNT 7.2 10^3/uL (4.0-10.0)
[2018-08-09] MEDS ORDERED: LIDOCAINE W/EPINEPHRINE 1% 20ML VIAL As Ordered ONE (20:54)
[2018-08-09] MEDS ORDERED: LIDOCAINE W/EPINEPHRINE 1% 20ML VIAL SC ONE (21:00)
[2018-08-09 21:30] LABS: ALBUMIN 3.9 GM/DL (3.2-5.2); BILIRUBIN,DIRECT 0.1 MG/DL (0.0-0.2); BILIRUBIN,TOTAL 0.4 MG/DL (0.2-1.0)
[2018-08-09] MEDS ORDERED: fentaNYL 100 MCG/2 ML INJECTION (J3010) IV ONE ×2 (22:00→23:45)
[2018-08-09 22:01] LABS: AMPHETAMINES LEVEL URINE NEGATIVE (NEGATIVE); BARBITURATES URINE NEGATIVE (NEGATIVE); BENZODIAZEPINES URINE NEGATIVE (NEGATIVE); CANNABINOIDS URINE NEGATIVE (NEGATIVE); COCAINE METABOLITE URINE NEGATIVE (NEGATIVE); METHADONE URINE NEGATIVE (NEGATIVE); OPIATES URINE NEGATIVE (NEGATIVE); PHENCYCLIDINE URINE NEGATIVE (NEGATIVE)
[2018-08-09] MEDS ORDERED: DILUENT IV ONE (22:15)
[2018-08-09] MEDS ORDERED: NS IV ONE (22:15)
[2018-08-09 23:01] LABS: BASO % 0.3 % (0.0-1.0); EOS % 0.3 % (0.0-3.0); HEMATOCRIT 35.4 % (42.0-52.0); LYMPH # 1.2 10^3/uL (1.5-4.5); LYMPH % 12.5 % (24.0-44.0); MEAN CORPUSCULAR HEMOGLOBIN 34.7 pg (27.0-33.0); MEAN CORPUSCULAR HGB CONC 33.9 g/dl (32.0-36.5); MEAN CORPUSCULAR VOLUME 102.3 fl (80.0-96.0); MONO # 0.5 10^3/uL (0.0-0.8); MONO % 4.9 % (0.0-5.0); NEUTROPHILS # 7.9 10^3/uL (1.8-7.7); NEUTROPHILS % 81.5 % (36.0-66.0); PLATELET COUNT, AUTOMATED 184 10^3/uL (150-450); RED BLOOD COUNT 3.46 10^6/uL (4.30-6.10); WHITE BLOOD COUNT 9.6 10^3/uL (4.0-10.0)
[2018-08-09] MEDS ORDERED: TETANUS/DIPHTHERIA TOX ADSORB ADULT 0.5ML SYR/VIAL (90714) IM ONE (23:45)
[2018-08-09] MEDS ORDERED: NAPR-885 PO (23:59)
[2018-08-09] MEDS ORDERED: TOPI50TA9 PO (23:59)
[2018-08-09] MEDS ORDERED: DULO60CA35 PO (23:59)
[2018-08-09] MEDS ORDERED: FEXO180T70 PO (23:59)
[2018-08-09] MEDS ORDERED: LISI10TA4 PO (23:59)
[2018-08-09] MEDS ORDERED: AZEL1SPR3 (23:59)
[2018-08-09] MEDS ORDERED: ASPI1TAB62 PO (23:59)
[2018-08-10 02:00] VITALS: BP 135/94
[2018-08-10] MEDS: NORCO, ANEXSIA 5/325MG TABLET (HYDROcodone/ACETAMINOPHEN) PO PRN ×2 (02:38→09:07)
[2018-08-10 06:00] VITALS: BP 135/94
[2018-08-10 06:46] LABS: HEMATOCRIT 34.4 % (42.0-52.0); HEMOGLOBIN 11.7 g/dl (13.5-17.5); MEAN CORPUSCULAR HEMOGLOBIN 33.9 pg (27.0-33.0); MEAN CORPUSCULAR VOLUME 99.7 fl (80.0-96.0); PLATELET COUNT, AUTOMATED 188 10^3/uL (150-450); RED BLOOD COUNT 3.45 10^6/uL (4.30-6.10); WHITE BLOOD COUNT 10.1 10^3/uL (4.0-10.0)
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
== END 2018-08-10 14:05 | disposition home or self-care (01) ==
LOC: EDBD 18:22 → M ED 18:22 → M ED INP 23:24 → M MS5PR 08-10 01:55
PROVIDERS: ADMIT Surgery; ATTEND Surgery
DX: S02.2XXB Fracture of nasal bones, initial encounter for open fracture (principal); S02.31XA Fracture of orbital floor, right side, initial encounter for closed fracture; F10.120 Alcohol abuse with intoxication, uncomplicated; V57.5XXA Driver of pick-up truck or van injured in collision with fixed or stationary object in traffic accident, initial encounter; Y92.410 Unspecified street and highway as the place of occurrence of the external cause; Y93.C2 Activity, hand held interactive electronic device; D58.2 Other hemoglobinopathies; I10 Essential (primary) hypertension; G47.33 Obstructive sleep apnea (adult) (pediatric); F41.9 Anxiety disorder, unspecified; F32.9 Major depressive disorder, single episode, unspecified; Z79.899 Other long term (current) drug therapy
CPT/HCPCS: 13152; 13153; 36415; 70450; 70486; 71250; 72125; 72131; 74176; 80047; 80076; 80307; 85025; 85027; 86850; 86900; 86901; 90471; 90714; 93005; 93041; 96361; 96374; 96376; 99285; G0480; J3010

== ENCOUNTER → 2018-10-11 | Outpatient (REF) | payer OTHER ==
[~2018-10-11] MED LIST changes: +ASPI1TAB62 PO; +AZEL1SPR3; +DULO60CA35 PO; +FEXO180T70 PO; +LISI10TA4 PO; +NAPR-885 PO; +TOPI50TA9 PO
[2018-10-12 14:22] LABS: Lyme Disease IgG/IgM Antibodie <0.91 ISR (0.00-0.90); Lyme Disease IgM Ab Quantitati <0.80 index (0.00-0.79)
== END ==
LOC: M LABDRAW1 08:45
PROVIDERS: ATTEND Family Medicine
DX: R93.89 Abnormal findings on diagnostic imaging of other specified body structures (principal)
CPT/HCPCS: 36415; 85652; 86140; 86617; G0463

== ENCOUNTER → 2018-10-14 | Outpatient (CLI) | payer OTHER ==
[~2018-10-14] MED LIST changes: -BUPR300T34 PO; +BUPR300T92 PO; -OMEP40CA2 PO; +OMEP40CA97 PO
--- NOTE | 2018-10-16 10:38 | REP ---
MRI LEFT HAND: Multiple sequences obtained in axial, coronal, and sagittal planes. The visualized osseous structures of the hand demonstrate no abnormal bone marrow signal. There is no occult fracture. There is subchondral cystic change in the distal first metacarpal. There is a small joint effusion at the third metacarpal phalangeal joint. There is no evidence of a ganglion cyst. Flexor and extensor tendons are intact without tenosynovitis. Study is somewhat limited as the fingers are in a mildly flexed position and there is some signal dropout in the region of the distal fourth and fifth digits on the coronal images. Visualized collateral ligaments appear intact. No other soft tissue abnormality is seen. IMPRESSION: Somewhat limited exam as the fingers are in a somewhat flexed position. There is no occult fracture. No tear is seen of the visualized tendons or ligaments. There is a small joint effusion at the third metacarpal phalangeal joint. There is mild subchondral cystic change in the distal first metacarpal. Electronically Signed by Sinan Nunez MD 10/16/2018 01:12 P
== END ==
LOC: M RAD 13:01
PROVIDERS: ATTEND Family Medicine
DX: M25.442 Effusion, left hand (principal)

== ENCOUNTER → 2019-07-03 | Outpatient (REF) | payer OTHER ==
[2019-07-03 10:14] LABS: HEMATOCRIT 43.2 % (42.0-52.0); HEMOGLOBIN 14.6 g/dl (13.5-17.5); MEAN CORPUSCULAR HEMOGLOBIN 31.6 pg (27.0-33.0); MEAN CORPUSCULAR HGB CONC 33.8 g/dl (32.0-36.5); MEAN CORPUSCULAR VOLUME 93.5 fl (80.0-96.0); PLATELET COUNT, AUTOMATED 178 10^3/uL (150-450); RED BLOOD COUNT 4.62 10^6/uL (4.30-6.10); WHITE BLOOD COUNT 4.7 10^3/uL (4.0-10.0)
[2019-07-03 10:27] LABS: ALBUMIN 3.9 GM/DL (3.2-5.2); ALT/SGPT 21 U/L (12-78); BILIRUBIN,TOTAL 0.9 MG/DL (0.2-1.0); BLOOD UREA NITROGEN 21 MG/DL (7-18); CARBON DIOXIDE LEVEL 24 MEQ/L (21-32); CHLORIDE LEVEL 113 MEQ/L (98-107); CHOLESTEROL LEVEL 190 MG/DL (<200); CHOLESTEROL RISK RATIO 4.222 (<5); CREATININE FOR GFR 1.21 MG/DL (0.70-1.30); GLOMERULAR FILTRATION RATE > 60.0 (>56); GLUCOSE, FASTING 97 MG/DL (70-100); HDL CHOLESTEROL 45 MG/DL (>40); LDL CHOLESTEROL 89 MG/DL (<100); MAGNESIUM LEVEL 2.3 MG/DL (1.8-2.4); NON-HDL-C 145 MG/DL; POTASSIUM SERUM 4.3 MEQ/L (3.5-5.1); SODIUM LEVEL 143 MEQ/L (136-145); TOTAL PROTEIN 6.8 GM/DL (6.4-8.2); TRIGLYCERIDES LEVEL 281 MG/DL (<150)
== END ==
LOC: M SFHCPLAZ 08:14
PROVIDERS: ATTEND Internal Medicine
DX: Z12.5 Encounter for screening for malignant neoplasm of prostate (principal); I10 Essential (primary) hypertension; E78.2 Mixed hyperlipidemia; G47.33 Obstructive sleep apnea (adult) (pediatric); F41.8 Other specified anxiety disorders
CPT/HCPCS: 36415; 80053; 80061; 83735; 84443; 85027; G0103

== ENCOUNTER → 2019-11-23 | Outpatient (CLI) | payer OTHER ==
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
== END ==
LOC: M WUC 14:44
PROVIDERS: ATTEND Physician Assistant
DX: S60.012A Contusion of left thumb without damage to nail, initial encounter (principal); S60.022A Contusion of left index finger without damage to nail, initial encounter; X58.XXXA Exposure to other specified factors, initial encounter; Y92.89 Other specified places as the place of occurrence of the external cause

== ENCOUNTER → 2020-04-12 | Outpatient (CLI) | payer SELFPAY | LOC: M LABSMTC 09:03 | PROVIDERS: ATTEND Pediatrics | DX: Z20.822 Contact with and (suspected) exposure to COVID-19 (principal) ==

== ENCOUNTER → 2020-06-27 | Outpatient (CLI) | payer OTHER ==
[~2020-06-27] MED LIST changes: -LISI-538 PO; +LISI10TA22 PO; -LISI10TA4 PO; +LISI20TA33 PO
[2020-06-27 09:05] LABS: BASO # 0.1 10^3/uL (0.0-0.2); EOS # 0.2 10^3/uL (0.0-0.5); EOS % 4.5 % (0.0-3.0); HEMATOCRIT 39.6 % (42.0-52.0); HEMOGLOBIN 13.6 g/dl (13.5-17.5); LYMPH # 1.3 10^3/uL (1.5-5.0); LYMPH % 27.1 % (24.0-44.0); MEAN CORPUSCULAR HEMOGLOBIN 34.1 pg (27.0-33.0); MEAN CORPUSCULAR HGB CONC 34.3 g/dl (32.0-36.5); MEAN CORPUSCULAR VOLUME 99.2 fl (80.0-96.0); MONO # 0.4 10^3/uL (0.0-0.8); MONO % 8.8 % (2.0-8.0); NEUTROPHILS # 2.8 10^3/uL (1.5-8.5); NEUTROPHILS % 58.2 % (36.0-66.0); PLATELET COUNT, AUTOMATED 170 10^3/uL (150-450); RED BLOOD COUNT 3.99 10^6/uL (4.30-6.10); WHITE BLOOD COUNT 4.9 10^3/uL (4.0-10.0)
[2020-06-27 09:40] LABS: ALBUMIN 3.6 GM/DL (3.2-5.2); ALT/SGPT 92 U/L (12-78); BILIRUBIN,TOTAL 0.5 MG/DL (0.2-1.0); BLOOD UREA NITROGEN 18 MG/DL (7-18); CALCIUM LEVEL 8.2 MG/DL (8.5-10.1); CARBON DIOXIDE LEVEL 27 MEQ/L (21-32); CHLORIDE LEVEL 112 MEQ/L (98-107); CHOLESTEROL LEVEL 187 MG/DL (<200); CHOLESTEROL RISK RATIO 3.895 (<5); CREATININE FOR GFR 1.26 MG/DL (0.70-1.30); GLOMERULAR FILTRATION RATE > 60.0 (>56); GLUCOSE, FASTING 87 MG/DL (70-100); HDL CHOLESTEROL 48 MG/DL (>40); LDL CHOLESTEROL 89 MG/DL (<100); NON-HDL-C 139 MG/DL; POTASSIUM SERUM 4.1 MEQ/L (3.5-5.1); SODIUM LEVEL 145 MEQ/L (136-145); TOTAL PROTEIN 6.6 GM/DL (6.4-8.2); TRIGLYCERIDES LEVEL 252 MG/DL (<150)
== END ==
LOC: M LAB 07:58
PROVIDERS: ATTEND Internal Medicine
DX: G47.33 Obstructive sleep apnea (adult) (pediatric) (principal); I11.9 Hypertensive heart disease without heart failure; E78.2 Mixed hyperlipidemia

== ENCOUNTER → 2020-10-01 | Outpatient (REF) | payer OTHER ==
[~2020-10-01] MED LIST changes: +OMEP40CA4 PO; -OMEP40CA97 PO
[2020-10-01 17:29] LABS: BASO # 0.1 10^3/uL (0.0-0.2); BASO % 0.8 % (0.0-1.0); EOS # 0.1 10^3/uL (0.0-0.5); EOS % 2.1 % (0.0-3.0); HEMATOCRIT 42.3 % (42.0-52.0); HEMOGLOBIN 14.6 g/dl (13.5-17.5); LYMPH # 1.8 10^3/uL (1.5-5.0); LYMPH % 29.9 % (24.0-44.0); MEAN CORPUSCULAR HGB CONC 34.5 g/dl (32.0-36.5); MEAN CORPUSCULAR VOLUME 98.4 fl (80.0-96.0); MONO # 0.6 10^3/uL (0.0-0.8); MONO % 9.4 % (2.0-8.0); NEUTROPHILS # 3.5 10^3/uL (1.5-8.5); NEUTROPHILS % 57.6 % (36.0-66.0); PLATELET COUNT, AUTOMATED 215 10^3/uL (150-450); WHITE BLOOD COUNT 6.1 10^3/uL (4.0-10.0)
[2020-10-01 17:59] LABS: ALBUMIN 3.8 GM/DL (3.2-5.2); ALT/SGPT 112 U/L (12-78); BILIRUBIN,TOTAL 0.8 MG/DL (0.2-1.0); BLOOD UREA NITROGEN 18 MG/DL (7-18); CARBON DIOXIDE LEVEL 24 MEQ/L (21-32); CHLORIDE LEVEL 106 MEQ/L (98-107); CHOLESTEROL LEVEL 184 MG/DL (<200); CHOLESTEROL RISK RATIO 3.607 (<5); GLOMERULAR FILTRATION RATE > 60.0 (>56); GLUCOSE, FASTING 88 MG/DL (70-100); HDL CHOLESTEROL 51 MG/DL (>40); LDL CHOLESTEROL 54 MG/DL (<100); MAGNESIUM LEVEL 2.3 MG/DL (1.8-2.4); NON-HDL-C 133 MG/DL; POTASSIUM SERUM 4.2 MEQ/L (3.5-5.1); SODIUM LEVEL 138 MEQ/L (136-145); TOTAL PROTEIN 7.1 GM/DL (6.4-8.2); TRIGLYCERIDES LEVEL 393 MG/DL (<150)
[2020-10-01 18:03] LABS: HEPATITIS B SURFACE ANTIBODY NEGATIVE (POSITIVE)
[2020-10-01 18:14] LABS: HEPATITIS B SURFACE ANTIGEN NEGATIVE (NEGATIVE)
[2020-10-01 18:41] LABS: HEPATITIS C VIRUS ABY INDEX < 0.0 INDEX (<0.8)
== END ==
LOC: M SFHCPLAZ 15:15
PROVIDERS: ATTEND Internal Medicine
DX: G47.33 Obstructive sleep apnea (adult) (pediatric) (principal); I11.9 Hypertensive heart disease without heart failure; K76.0 Fatty (change of) liver, not elsewhere classified; E78.2 Mixed hyperlipidemia

== ENCOUNTER → 2020-10-01 | Outpatient (CLI) | payer OTHER | LOC: M PLALAB 16:03 | PROVIDERS: ATTEND Internal Medicine | DX: G47.33 Obstructive sleep apnea (adult) (pediatric) (principal); I11.9 Hypertensive heart disease without heart failure; K76.0 Fatty (change of) liver, not elsewhere classified; Z53.8 Procedure and treatment not carried out for other reasons ==

== ENCOUNTER → 2021-04-28 | Outpatient (CLI) | payer OTHER ==
[2021-04-28 12:10] LABS: ALBUMIN 3.8 GM/DL (3.2-5.2); ALT/SGPT 142 U/L (12-78); BILIRUBIN,TOTAL 0.9 MG/DL (0.2-1.0); BLOOD UREA NITROGEN 14 MG/DL (7-18); CALCIUM LEVEL 9.5 MG/DL (8.5-10.1); CARBON DIOXIDE LEVEL 28 MEQ/L (21-32); CHLORIDE LEVEL 107 MEQ/L (98-107); CHOLESTEROL LEVEL 179 MG/DL (<200); CHOLESTEROL RISK RATIO 3.729 (<5); CREATININE FOR GFR 1.25 MG/DL (0.70-1.30); GLOMERULAR FILTRATION RATE > 60.0 (>56); GLUCOSE, FASTING 97 MG/DL (70-100); HDL CHOLESTEROL 48 MG/DL (>40); NON-HDL-C 131 MG/DL; POTASSIUM SERUM 4.4 MEQ/L (3.5-5.1); SODIUM LEVEL 144 MEQ/L (136-145); TOTAL PROTEIN 7.3 GM/DL (6.4-8.2); TRIGLYCERIDES LEVEL 413 MG/DL (<150)
== END ==
LOC: M PLAIMG 09:17
PROVIDERS: ATTEND Internal Medicine
DX: Z12.5 Encounter for screening for malignant neoplasm of prostate (principal); I11.9 Hypertensive heart disease without heart failure; M25.571 Pain in right ankle and joints of right foot; E78.2 Mixed hyperlipidemia; K76.0 Fatty (change of) liver, not elsewhere classified
CPT/HCPCS: 36415; 73610; 80053; 80061; G0103; G0463

== ENCOUNTER → 2021-05-13 | Outpatient (CLI) | payer OTHER ==
[2021-05-13 18:08] LABS: C REACTIVE PROTEIN QUANTITATIV 0.43 MG/DL (0.00-0.30); RHEUMATOID FACTOR QUANT < 10.0 IU/ML (<15.0); URIC ACID 8.7 MG/DL (3.5-7.2)
== END ==
LOC: M PLALAB 14:27
PROVIDERS: ATTEND Physician Assistant
DX: M79.671 Pain in right foot (principal)

== ENCOUNTER → 2021-08-12 | Outpatient (REF) | payer OTHER ==
[~2021-08-12] MED LIST changes: +ASPI-596 PO; -EXCEDTAB PO; +FEXO-111 PO; -FEXO180T70 PO
== END ==
LOC: M SFHCPLAZ 16:50
PROVIDERS: ATTEND Physician Assistant
DX: R50.9 Fever, unspecified (principal)

== ENCOUNTER → 2021-10-27 | Outpatient (CLI) | payer OTHER ==
[2021-10-27 16:08] LABS: ALBUMIN 3.7 GM/DL (3.2-5.2); ALT/SGPT 141 U/L (12-78); BILIRUBIN,TOTAL 0.6 MG/DL (0.2-1.0); BLOOD UREA NITROGEN 13 MG/DL (7-18); CALCIUM LEVEL 9.5 MG/DL (8.5-10.1); CARBON DIOXIDE LEVEL 26 MEQ/L (21-32); CHLORIDE LEVEL 108 MEQ/L (98-107); CHOLESTEROL LEVEL 222 MG/DL (<200); CREATININE FOR GFR 1.18 MG/DL (0.70-1.30); GLOMERULAR FILTRATION RATE > 60.0 (>56); GLUCOSE, FASTING 95 MG/DL (70-100); HDL CHOLESTEROL 40 MG/DL (>40); LDL CHOLESTEROL 102 MG/DL (<100); NON-HDL-C 182 MG/DL; POTASSIUM SERUM 4.7 MEQ/L (3.5-5.1); SODIUM LEVEL 142 MEQ/L (136-145); TOTAL PROTEIN 7.2 GM/DL (6.4-8.2); TRIGLYCERIDES LEVEL 398 MG/DL (<150); URIC ACID 10.2 MG/DL (3.5-7.2)
== END ==
LOC: M PLALAB 11:43
PROVIDERS: ATTEND Internal Medicine
DX: K76.0 Fatty (change of) liver, not elsewhere classified (principal); E79.0 Hyperuricemia without signs of inflammatory arthritis and tophaceous disease; E78.2 Mixed hyperlipidemia
CPT/HCPCS: 36415; 80053; 80061; 84550; G0463

== ENCOUNTER → 2022-05-27 | Outpatient (CLI) | payer OTHER ==
[2022-05-27 10:27] LABS: HEMATOCRIT 46.3 % (42.0-52.0); HEMOGLOBIN 15.2 g/dl (13.5-17.5); MEAN CORPUSCULAR HEMOGLOBIN 34.7 pg (27.0-33.0); MEAN CORPUSCULAR HGB CONC 32.8 g/dl (32.0-36.5); MEAN CORPUSCULAR VOLUME 105.7 fl (80.0-96.0); PLATELET COUNT, AUTOMATED 306 10^3/uL (150-450); RED BLOOD COUNT 4.38 10^6/uL (4.30-6.10); WHITE BLOOD COUNT 4.8 10^3/uL (4.0-10.0)
[2022-05-27 10:36] LABS: HEMOGLOBIN A1c 5.2 % (4.0-6.0)
[2022-05-27 10:53] LABS: LIPASE 56 U/L (12-53)
[2022-05-27 10:59] LABS: ALBUMIN 3.9 G/DL (3.2-5.2); ALKALINE PHOSPHATASE 123 U/L (46-116); ALT/SGPT 179 U/L (7.0-40); AST/SGOT 257 U/L (<34); BILIRUBIN,TOTAL 1.2 MG/DL (0.3-1.2); BLOOD UREA NITROGEN 21 MG/DL (9-23); CALCIUM LEVEL 10.3 MG/DL (8.5-10.1); CARBON DIOXIDE LEVEL 26 MMOL/L (20-31); CHLORIDE LEVEL 105 MMOL/L (98-107); CHOLESTEROL LEVEL 221 MG/DL (<200); CREATININE FOR GFR 1.14 MG/DL (0.70-1.30); GLOMERULAR FILTRATION RATE > 60.0 (>56); GLUCOSE, FASTING 95 MG/DL (60-100); HDL CHOLESTEROL 28.3 MG/DL (>40); LDL CHOLESTEROL 155.5 MG/DL (<100); NON-HDL-C 193 MG/DL; POTASSIUM SERUM 4.5 MMOL/L (3.5-5.1); SODIUM LEVEL 139 MMOL/L (136-145); THYROID STIMULATING HORMONE 5.361 uIU/ML (0.55-4.78); TOTAL 25(OH) VITAMIN D 55.3 NG/ML (20.0-100.0); TOTAL PROTEIN 7.3 G/DL (5.7-8.2); TRIGLYCERIDES LEVEL 186 MG/DL (<150); VITAMIN B12 LEVEL 623 PG/ML (211-911)
[2022-05-27 13:49] LABS: CREATININE, URINE 244.8 MG/DL
[2022-05-27 13:50] LABS: MAU/CREAT RATIO 6.1 MCG/MG (0.0-30.0)
== END ==
LOC: M PLALAB 08:03
PROVIDERS: ATTEND Internal Medicine Hematology
DX: I11.9 Hypertensive heart disease without heart failure (principal)

== ENCOUNTER → 2022-06-02 | Outpatient (CLI) | payer OTHER ==
[~2022-06-02] MED LIST changes: +TOPI-254 PO; -TOPI50TA9 PO
== END ==
LOC: M RAD 08:36
PROVIDERS: ATTEND Internal Medicine Hematology
DX: K76.0 Fatty (change of) liver, not elsewhere classified (principal); K86.0 Alcohol-induced chronic pancreatitis; R16.1 Splenomegaly, not elsewhere classified

== ENCOUNTER → 2022-06-24 | Outpatient (CLI) | payer OTHER ==
[2022-06-24 19:17] LABS: HEMATOCRIT 46.7 % (42.0-52.0); HEMOGLOBIN 15.8 g/dl (13.5-17.5); MEAN CORPUSCULAR HEMOGLOBIN 34.1 pg (27.0-33.0); MEAN CORPUSCULAR HGB CONC 33.8 g/dl (32.0-36.5); MEAN CORPUSCULAR VOLUME 100.9 fl (80.0-96.0); PLATELET COUNT, AUTOMATED 264 10^3/uL (150-450); RED BLOOD COUNT 4.63 10^6/uL (4.30-6.10); WHITE BLOOD COUNT 7.2 10^3/uL (4.0-10.0)
[2022-06-24 19:52] LABS: ALBUMIN 4.1 G/DL (3.2-5.2); BILIRUBIN,DIRECT 0.2 MG/DL (<0.4); BILIRUBIN,TOTAL 0.6 MG/DL (0.3-1.2)
== END ==
LOC: M PLALAB 16:25
PROVIDERS: ATTEND Internal Medicine Hematology
DX: K76.0 Fatty (change of) liver, not elsewhere classified (principal)
CPT/HCPCS: 36415; 80076; 82105; 83615; 85027; G0463

== ENCOUNTER → 2022-08-23 | Outpatient (CLI) | payer OTHER | LOC: M CARPUL 10:26 | PROVIDERS: ATTEND Internal Medicine Hematology | DX: I71.20 Thoracic aortic aneurysm, without rupture, unspecified (principal) ==

== ENCOUNTER → 2023-06-27 | Outpatient (CLI) | payer OTHER ==
[~2023-06-27] MED LIST changes: +TOPI-21 PO; -TOPI-254 PO
[2023-06-27 14:10] LABS: HEMATOCRIT 41.8 % (42.0-52.0); HEMOGLOBIN 14.3 g/dl (13.5-17.5); MEAN CORPUSCULAR HEMOGLOBIN 33.9 pg (27.0-33.0); MEAN CORPUSCULAR HGB CONC 34.2 g/dl (32.0-36.5); MEAN CORPUSCULAR VOLUME 99.1 fl (80.0-96.0); PLATELET COUNT, AUTOMATED 191 10^3/uL (150-450); RED BLOOD COUNT 4.22 10^6/uL (4.30-6.10); WHITE BLOOD COUNT 5.4 10^3/uL (4.0-10.0)
[2023-06-27 14:36] LABS: CREATININE, URINE 21.4 MG/DL; MALB URINE SIEMENS < 3.0 MG/L
[2023-06-27 14:39] LABS: PSA SCREENING 0.25 NG/ML (< 4.00)
[2023-06-27 14:42] LABS: C REACTIVE PROTEIN QUANTITATIV < 0.40 MG/DL (<1.0); FREE T4 0.97 NG/DL (0.89-1.76)
[2023-06-27 14:43] LABS: THYROID STIMULATING HORMONE 3.218 uIU/ML (0.55-4.78)
[2023-06-27 14:44] LABS: ALBUMIN 3.8 G/DL (3.2-5.2); ALKALINE PHOSPHATASE 97 U/L (46-116); ALT/SGPT 156 U/L (7.0-40); AST/SGOT 123 U/L (<34); BILIRUBIN,TOTAL 0.5 MG/DL (0.3-1.2); BLOOD UREA NITROGEN 15 MG/DL (9-23); CALCIUM LEVEL 8.9 MG/DL (8.5-10.1); CARBON DIOXIDE LEVEL 28 MMOL/L (20-31); CHLORIDE LEVEL 109 MMOL/L (98-107); CHOLESTEROL LEVEL 183 MG/DL (<200); CHOLESTEROL RISK RATIO 4.47 (<5); CREATININE FOR GFR 1.23 MG/DL (0.70-1.30); GLOMERULAR FILTRATION RATE > 60.0 (>56); GLUCOSE, FASTING 99 MG/DL (60-100); HDL CHOLESTEROL 40.9 MG/DL (>40); NON-HDL-C 142.1 MG/DL; POTASSIUM SERUM 4.3 MMOL/L (3.5-5.1); SODIUM LEVEL 140 MMOL/L (136-145); TOTAL PROTEIN 6.6 G/DL (5.7-8.2); TRIGLYCERIDES LEVEL 515 MG/DL (<150); VITAMIN B12 LEVEL 304 PG/ML (211-911)
== END ==
LOC: M PLALAB 11:20
PROVIDERS: ATTEND Internal Medicine Hematology
DX: K76.0 Fatty (change of) liver, not elsewhere classified (principal)
CPT/HCPCS: 36415; 80053; 80061; 82043; 82306; 82607; 83036; 84439; 84443; 85027; 86140; G0103

== ENCOUNTER → 2023-08-05 | Outpatient (CLI) | payer OTHER ==
[~2023-08-05] MED LIST changes: +BUPR-597 PO; -BUPR300T92 PO
== END ==
LOC: M RAD 17:20
PROVIDERS: ATTEND Physician Assistant
DX: M79.652 Pain in left thigh (principal); S76.312A Strain of muscle, fascia and tendon of the posterior muscle group at thigh level, left thigh, initial encounter; W18.30XA Fall on same level, unspecified, initial encounter; Y92.009 Unspecified place in unspecified non-institutional (private) residence as the place of occurrence of the external cause

== ENCOUNTER → 2024-10-26 | Outpatient (CLI) | payer OTHER ==
[~2024-10-26] MED LIST changes: -BUPR-597 PO; +BUPR-766 PO; +E-Z-GAS II EFFERVESCENT PACKET (SODIUM BICARB./CITRIC ACID/SIMETHICONE) As Ordered ONE; +E-Z-HD 98% w/w 340 GM SUSP BTL As Ordered ONE; +E-Z-PAQUE 96% w/w SUSP 176 GM BTL As Ordered ONE
== END ==
LOC: M RAD 08:23
PROVIDERS: ATTEND Family Medicine
DX: K21.9 Gastro-esophageal reflux disease without esophagitis (principal)

== ENCOUNTER → 2024-12-28 | Outpatient (CLI) | payer OTHER ==
[~2024-12-28] MED LIST changes: -E-Z-GAS II EFFERVESCENT PACKET (SODIUM BICARB./CITRIC ACID/SIMETHICONE) As Ordered ONE; -E-Z-HD 98% w/w 340 GM SUSP BTL As Ordered ONE; -E-Z-PAQUE 96% w/w SUSP 176 GM BTL As Ordered ONE
== END ==
LOC: M RAD 08:49
DX: K74.00 Hepatic fibrosis, unspecified (principal); R16.0 Hepatomegaly, not elsewhere classified; K82.8 Other specified diseases of gallbladder; R93.2 Abnormal findings on diagnostic imaging of liver and biliary tract

== ENCOUNTER → 2025-01-01 | Outpatient (REF) | payer OTHER ==
[2025-01-01 16:19] LABS: PLATELET COUNT, AUTOMATED 227 10^3/uL (150-450)
[2025-01-01 16:40] LABS: ALT/SGPT 25.0 U/L (7.0-40); AST/SGOT 136.0 U/L (<34); CALCIUM LEVEL 8.9 MG/DL (8.5-10.1); CARBON DIOXIDE LEVEL 25.0 MMOL/L (20-31); CHLORIDE LEVEL 106.0 MMOL/L (98-107); CHOLESTEROL LEVEL 207.0 MG/DL (<200); CHOLESTEROL RISK RATIO 14.37 (<5); CREATININE FOR GFR 1.01 MG/DL (0.70-1.30); GLOMERULAR FILTRATION RATE 87.8 (>56); LDL CHOLESTEROL 145.8 MG/DL (<100); NON-HDL-C 192.6 MG/DL; POTASSIUM SERUM 4.2 MMOL/L (3.5-5.1); SODIUM LEVEL 143.0 MMOL/L (136-145); TRIGLYCERIDES LEVEL 234.0 MG/DL (<150)
[2025-01-01 17:09] LABS: ESTIMATED AVERAGE GLUCOSE 94.0 MG/DL (60-110)
[2025-01-02 08:45] LABS: VITAMIN B12 LEVEL 513.0 PG/ML (211-911)
== END ==
LOC: M SFHCPLAZ 11:13
PROVIDERS: ATTEND Family Medicine
DX: K76.0 Fatty (change of) liver, not elsewhere classified (principal); I11.9 Hypertensive heart disease without heart failure; E78.1 Pure hyperglyceridemia; R60.0 Localized edema; K74.00 Hepatic fibrosis, unspecified; E80.6 Other disorders of bilirubin metabolism; D53.9 Nutritional anemia, unspecified

== ENCOUNTER → 2025-01-10 | Outpatient (CLI) | payer OTHER ==
[2025-01-10 11:46] LABS: CREATININE, URINE 220.7 MG/DL; MALB URINE SIEMENS 7.0 MG/L; MAU/CREAT RATIO 3.1 MCG/MG (0.0-30.0)
[2025-01-10 11:47] LABS: ALT/SGPT 39.0 U/L (7.0-40); AST/SGOT 137.0 U/L (<34)
[2025-01-15 16:47] LABS: ENHANCED LIVER FIBROSIS SCORE 13.75 (<9.80)
[2025-01-16 16:37] LABS: ALPHA 2-MACROGLOBULINS,QN 216 mg/dL (106-279); ALT (SGPT) P5P 26 U/L (9-46); APOLIPOPROTEIN A-1 74 mg/dL (94-176); FIBROSIS SCORE 0.92; FIBROSIS STAGE SEVERE FIBROSIS (F0); GGT 323 U/L (3-85); HAPTOGLOBIN 98 mg/dL (43-212); NECROINFLAM ACT GRADE NO ACTIVITY (A0); NECROINFLAM ACT SCORE 0.26
== END ==
LOC: M PLALAB 08:48
PROVIDERS: ATTEND Family Medicine
DX: R60.0 Localized edema (principal)

== ENCOUNTER → 2025-03-15 | Outpatient (CLI) | payer OTHER | LOC: M PLAIMG 08:03 | PROVIDERS: ATTEND Family Medicine | DX: I71.21 Aneurysm of the ascending aorta, without rupture (principal); K83.1 Obstruction of bile duct; K83.8 Other specified diseases of biliary tract; E80.6 Other disorders of bilirubin metabolism; R79.89 Other specified abnormal findings of blood chemistry ==